=== PATIENT | female | born 1970 | race Asian ===

== ENCOUNTER → 2017-01-18 | Outpatient (CLI) | payer OTHER ==
[~2017-01-18] MED LIST: AMLO5TAB2 PO; BENZ2.5G TOPICAL; CHOL5000 PO; PERC5TAB12 PO
== END ==
LOC: CPRE 09:42
PROVIDERS: ATTEND Obstetrics & Gynecology Gynecologic Oncology
DX: N89.8 Other specified noninflammatory disorders of vagina (principal)

== ENCOUNTER → 2017-01-26 | Day surgery (SDC) | payer OTHER ==
[~2017-01-26] VITALS: Ht 160 cm; Wt 57.7 kg
[~2017-01-26] MED LIST changes: +ACETAMINOPHEN 1000 MG/100 ML 100 ML IV ONE; +CHLORHEXIDINE GLUCONATE 2 % 1 PACK (2 CLOTHS) TOPICAL PRN; +DEXAMETHASONE SOD PHOS 4 MG/ML VIAL IV ONE; +DO NOT ADM ANY ANTICOAGULANT DRUGS PRN; +KETOROLAC TROMETHAMINE 30 MG/ML (IVP) VIAL IV PUSH ONE; +KETOROLAC TROMETHAMINE 30 MG/ML (IVP) VIAL IV PUSH SCH; +LACTATED RINGER'S 1000 ML IV PRN; +LIDOCAINE 1%/EPINEPHrine 1:100,000 SOLN 50 ML VIAL ONE; +LIDOCAINE HCL 1% PF 5 ML SYRINGE OTHER ONE; +METOPROLOL TARTRATE 25 MG TAB PO PRN; +ONDANSETRON HCL 4 MG/2 ML VIAL IV PUSH ONE; +POVIDONE IODINE 5% (ANTISEPSIS KIT) 4 APPLICATIONS EACH NARE PRN; +PROPOFOL 200 MG/20 ML AMP IV ONE; +SODIUM CHLORID 0.9% 500 ML IV PRN; +SODIUM CHLORIDE 0.9% 20 ML VIAL IV ONE; +ceFAZolin INJ 1,000 MG VIAL IV ONE; +ePHEDrine/NS 25 MG/5 ML SYR IV ONE; +oxyCODONE/ACETAMINOPHEN 5 MG/325 MG TAB PO PRN
[2017-01-26 15:45] VITALS: BP 142/94; PULSE 77; RESP 18; TEMP 97.4; O2SAT 100
--- NOTE | 2017-01-28 07:58 | MP ---
cc: BINU FAJARDO MD, CHRISTOPHER MOLPUS,ZACHARIAH Mendoza MD DATE OF SURGERY 01/26/2017 PREOPERATIVE DIAGNOSIS Cystic mass arising from the cervix/anterior vagina. POSTOPERATIVE DIAGNOSIS Cystic mass arising from the cervix/anterior vagina. PROCEDURE Examination under anesthesia, resection of cystic mass from the cervix/anterior vagina. SURGEON Zachariah June. [employer] assistant principal ANESTHESIA General endotracheal anesthesia ESTIMATED BLOOD LOSS 20 cc HISTORY This is a 46-year-old female found on exam and imaging to have a 3-4 cm cystic mass that seemed to be arising from the anterior surface of the cervix possibly extending to the distal portion of the anterior vagina at the cervicovaginal interface. She is having some urinary symptoms including increased urinary frequency. It is uncertain whether or not pressure from this mass is contributing, but thought to possibly be a contributing factor. She was counseled regarding options and presents now for surgical management. FINDINGS On exam under anesthesia, there is no appreciably enlarged inguinal lymph nodes. External genitalia without mass or lesion. The cervix is prominent circumferentially, but smooth. There is a 3-4 cm smooth-walled mass that appears to probably be full of mucinous material that is arising from the anterior cervix centered at 12 o'clock position and extending along the anterior surface of the cervix to the anterior cervicovaginal interface. There is no other mass or abnormality seen. No other nodularity or abnormality detected. The uterus and cervix are mobile. PROCEDURE She was taken to the operating room, placed in the dorsal lithotomy position after general endotracheal anesthesia was administered. A time-out was undertaken. She was identified by sight recognition and hospital ID bracelet and the proposed procedure was reviewed and confirmed. She was placed in the dorsal lithotomy position. Exam under anesthesia was performed with findings as described above. She was prepped and draped in a sterile fashion. In-and-out catheterization of the bladder was performed. The tissue adjacent to the mass was grasped with Allis clamps. Lidocaine epinephrine was injected circumferentially in the tissue adjacent to the mass. An incision was made in a circumlinear fashion from approximately the 10 o'clock position to the 2 o'clock position on the cervix and sharp dissection was used to dissect right along the wall of the mass circumferentially dissecting first ventrally and dissecting the tissue back with ongoing palpation and visualization to identify the edge of the mass. Dissection was then carried out laterally and posteriorly with countertraction on the mass until dissection was completed behind the mass and it could be removed. The wall of the mass was intact and sent for permanent histopathologic analysis. The cervix was irrigated. The circumlinear incision was closed with interrupted 3-0 Vicryl [id number] sutures which rendered the tissue, well-approximated and hemostatic. The entire mass had been removed and the normal baseline anatomy was restored. There was good hemostasis. There were no remaining foreign objects in the vagina. Preliminary and final counts were correct. She was returned to dorsal supine position and was pending reversal of anesthesia when I left the operating room to precede to the Post Anesthesia Care Unit. MD KOREY Chung/KENA /7:27 AM /7:47 AM
== END | disposition home or self-care (01) ==
LOC: HSDC 10:46
PROVIDERS: ATTEND Obstetrics & Gynecology Gynecologic Oncology
DX: N89.8 Other specified noninflammatory disorders of vagina (principal); N72 Inflammatory disease of cervix uteri; R35.0 Frequency of micturition; N84.1 Polyp of cervix uteri; I10 Essential (primary) hypertension; Z86.19 Personal history of other infectious and parasitic diseases
CPT/HCPCS: 00940; 57500; 86850; 86900; 86901; 88305; J0131; J0690; J1100; J1885; J2405; J3010; J7120